=== PATIENT | male | born 1980 | race Caucasian/White ===

== ENCOUNTER 2018-09-13 09:58 | Outpatient (CLI) | payer OTHER ==
[~2018-09-13] VITALS: Ht 177.8 cm; Wt 104.3 kg
[2018-09-13] MEDS ORDERED: CETI10TA17 PO (10:55)
[2018-09-13] MEDS ORDERED: MELO15TA39 PO (10:55)
[2018-09-13] MEDS ORDERED: EMPA25TA PO (10:55)
[2018-09-13] MEDS ORDERED: LISI-552 PO (10:55)
[2018-09-13] MEDS ORDERED: FLUV100T3 PO ×2 (10:55)
[2018-09-13] MEDS ORDERED: OMEP20TA7 PO (10:55)
[2018-09-13] MEDS ORDERED: VILA40TA PO (10:55)
[2018-09-13] MEDS ORDERED: SAXA5TAB PO (10:55)
[2018-09-13] MEDS ORDERED: METF-399 PO (10:55)
== END 2018-09-13 10:57 | disposition home or self-care (01) ==
LOC: PREOP 09:58
PROVIDERS: ATTEND Surgery
DX: Z01.818 Encounter for other preprocedural examination (principal)

== ENCOUNTER → 2018-09-13 | Outpatient (CLI) | payer OTHER ==
[~2018-09-13] MED LIST: CETI10TA17 PO; EMPA25TA PO; FLUV100T3 PO; LISI-552 PO; MELO15TA39 PO; METF-399 PO; OMEP20TA7 PO; SAXA5TAB PO; VILA40TA PO
--- NOTE | 2018-09-13 08:46 | Diagnostic Imaging Report ---
PROCEDURE: US Gallbladder. TECHNIQUE: Multiple real-time grayscale images were obtained over the right upper quadrant in various projections. INDICATION: Chest pain and bloating. FINDINGS: The liver is mildly enlarged at 19 cm. There is a cyst in the left lobe of liver measuring approximately 16 mm x 14 mm. No solid liver mass is identified. The portal vein is patent and shows normal direction of flow. The gallbladder is without stones or sludge. No wall thickening or biliary ductal dilatation is seen. The pancreas was obscured by bowel gas. The right kidney is unremarkable. There is no ascites. IMPRESSION: Mild hepatomegaly and small left lobe hepatic cyst. The study is otherwise unremarkable. Dictated by: Dictated on workstation # [id number]
== END ==
LOC: RAD 06:59
PROVIDERS: ATTEND Surgery
DX: R16.0 Hepatomegaly, not elsewhere classified (principal); K76.89 Other specified diseases of liver; K21.9 Gastro-esophageal reflux disease without esophagitis; R07.9 Chest pain, unspecified
CPT/HCPCS: 76705; 93005

== ENCOUNTER 2018-09-15 11:39 | Day surgery (SDC) | payer OTHER ==
[~2018-09-15] VITALS: Ht 177.8 cm; Wt 104.3 kg
--- OUTSIDE RECORDS SUMMARY | 2018-09-15 11:42 | XMS REPORT ---
Author Author DINO RENO [facility] Address [address] [place] [address] Care Team Providers Care Fur Clipper Name Role Phone DINO RENO Unavailable PROBLEMS Type Condition ICD9-CM Code ILG05-CT Code Onset Dates Condition Status SNOMED Code Problem Acute right-sided low back pain with right-sided sciatica M54.41 Active 966038741 Problem Essential hypertension I10 Active 75350015 Problem Obsessive-compulsive disorder, unspecified type F42.9 Active 855753015 Problem Non-insulin treated type 2 diabetes mellitus E11.9 Active 33309658 Problem Gastroesophageal reflux disease with esophagitis K21.0 Active 998704903 Problem Non morbid obesity due to excess calories E66.09 Active 466780699 ALLERGIES No Information ENCOUNTERS Encounter Location Date Diagnosis [facility] [address] [id number] [id number] Sep, [place] [id number] [place] [address] 12576- 1860 19 Jun, 2018 Acute right-sided low back pain with right-sided sciatica M54.41 [facility] [address] [address] 4261 18 Jun, 2018 [facility] [address] [place] [address] 13750- 5602 16 Jun, 2018 [facility] [address] [place] [address] 52003- 1731 12 Jun, 2018 [facility] [id number] [place] [address] 68922- 6826 Jun, [facility] [address] [place] [address] 60048- 2504 Jun, Acute right-sided low back pain with right-sided sciatica M54.41 [place] [address] [place] [address] 07422- 2959 Apr, [place] [id number] [place] [address] 78886- 5104 Mar, [place] [id number] [place] [address] 64722- 9278 Mar, Gastroesophageal reflux disease with esophagitis K21.0 ; Non -insulin treated type 2 diabetes mellitus E11.9 and Non-intractable vomiting without nausea, unspecified vomiting type R11.11 [place] [id number] [place] [address] 81171- 1704 15 Sep, 2017 [place] [id number] [place] [address] 49366- 9675 Aug, Arthralgia of left temporomandibular joint M26.622 [place] [id number] [place] [address] 45234- 3748 28 Jun, 2017 Gastroesophageal reflux disease with esophagitis K21.0 and Essential hypertension I10 [place] [id number] [place] [address] 57815- 7232 14 May, 2017 Obsessive-compulsive disorder, unspecified type F42.9 [place] [id number] [place] [address] 49302- 0334 11 Jan, 2017 Elevated liver enzymes R74.8 [place] [id number] [place] [address] 59364- 6808 16 Dec, 2016 Non-insulin treated type 2 diabetes mellitus E11.9 ; Non morbid obesity due to excess calories E66.09 and Obsessive-compulsive disorder, unspecified type F42.9 IMMUNIZATIONS No Known Immunizations SOCIAL HISTORY Never Assessed REASON FOR VISIT Update Demographics - Personal Info PLAN OF CARE VITAL SIGNS MEDICATIONS Unknown Medications RESULTS No Results PROCEDURES No Known procedures INSTRUCTIONS MEDICATIONS ADMINISTERED No Known Medications MEDICAL (GENERAL) HISTORY Type Description Date Medical History OCD Medical History Type 2 Diabetes Mellitus- Dx 2013 Medical History GERD Surgical History No know Surgical history Hospitalization History Mental health
--- OUTSIDE RECORDS SUMMARY | 2018-09-15 11:42 | XMS REPORT ---
Author Author DINO RENO [facility] Address [address] [place] [address] Care Team Providers Care Dairy Cattle Farm Worker Name Role Phone DINO RENO Unavailable PROBLEMS Type Condition ICD9-CM Code YLH67-OS Code Onset Dates Condition Status SNOMED Code Problem Acute right-sided low back pain with right-sided sciatica M54.41 Active 246910014 Problem Essential hypertension I10 Active 80221585 Problem Obsessive-compulsive disorder, unspecified type F42.9 Active 759680061 Problem Non-insulin treated type 2 diabetes mellitus E11.9 Active 70574788 Problem Gastroesophageal reflux disease with esophagitis K21.0 Active 315305116 Problem Non morbid obesity due to excess calories E66.09 Active 358289234 ALLERGIES No Information ENCOUNTERS Encounter Location Date Diagnosis [facility] [address] [id number] [id number] Sep, [address] [id number] [place] [address] 07069- 9246 19 Jun, 2018 Acute right-sided low back pain with right-sided sciatica M54.41 [facility] [address], [place] [address] 4688 18 Jun, 2018 [place] [address] [place] [address] 06715- 3717 16 Jun, 2018 [place] [facility] [address] [place] [address] 54673- 4938 12 Jun, 2018 [place] [id number] [place] [address] 71336- 3542 Jun, [facility] [address] [place] [address] 45371- 1056 Jun, Acute right-sided low back pain with right-sided sciatica M54.41 [place] [address] [place] [address] 20766- 6314 Apr, [place] [id number] [place] [address] 66653- 5725 Mar, [place] [id number] [place] [address] 87820- 3933 Mar, Gastroesophageal reflux disease with esophagitis K21.0 ; Non -insulin treated type 2 diabetes mellitus E11.9 and Non-intractable vomiting without nausea, unspecified vomiting type R11.11 [place] [id number] [place] [address] 49070- 3662 15 Sep, 2017 [place] [id number] [place] [address] 64356- 6128 Aug, Arthralgia of left temporomandibular joint M26.622 [place] [id number] [place] [address] 52866- 1008 28 Jun, 2017 Gastroesophageal reflux disease with esophagitis K21.0 and Essential hypertension I10 [place] [id number] [place] [address] 49941- 6992 14 May, 2017 Obsessive-compulsive disorder, unspecified type F42.9 [place] [id number] [place] [address] 71643- 5153 11 Jan, 2017 Elevated liver enzymes R74.8 [place] [id number] [place] [address] 56866- 8516 16 Dec, 2016 Non-insulin treated type 2 diabetes mellitus E11.9 ; Non morbid obesity due to excess calories E66.09 and Obsessive-compulsive disorder, unspecified type F42.9 IMMUNIZATIONS No Known Immunizations SOCIAL HISTORY Never Assessed REASON FOR VISIT Update Demographics - Additional Info PLAN OF CARE VITAL SIGNS MEDICATIONS Unknown Medications RESULTS No Results PROCEDURES No Known procedures INSTRUCTIONS MEDICATIONS ADMINISTERED No Known Medications MEDICAL (GENERAL) HISTORY Type Description Date Medical History OCD Medical History Type 2 Diabetes Mellitus- Dx 2013 Medical History GERD Surgical History No know Surgical history Hospitalization History Mental health
--- OUTSIDE RECORDS SUMMARY | 2018-09-15 11:43 | XMS REPORT ---
Author Author DINO RENO [facility] Address [address] [place] [address] Care Team Providers Care Career Law Clerk Name Role Phone DINO RENO Unavailable PROBLEMS Type Condition ICD9-CM Code ROA87-VG Code Onset Dates Condition Status SNOMED Code Problem Acute right-sided low back pain with right-sided sciatica M54.41 Active 290205678 Problem Essential hypertension I10 Active 29972907 Problem Obsessive-compulsive disorder, unspecified type F42.9 Active 878419033 Problem Non-insulin treated type 2 diabetes mellitus E11.9 Active 17704582 Problem Gastroesophageal reflux disease with esophagitis K21.0 Active 961141215 Problem Non morbid obesity due to excess calories E66.09 Active 004766913 ALLERGIES No Known Allergies ENCOUNTERS Encounter Location Date Diagnosis [facility] [address] [id number] [id number] Sep, [address] [id number] [place] [address] 10171- 4292 19 Jun, 2018 Acute right-sided low back pain with right-sided sciatica M54.41 [facility] [address], [place] [address]- 4143 18 Jun, 2018 [facility] [address] [place] [address] 27841- 8698 16 Jun, 2018 [facility] [address] [place] [address] 12931- 0704 12 Jun, 2018 [facility] [id number] [place] [address] 47785- 6179 Jun, [facility] [address] [place] [address] 79773- 3465 Jun, Acute right-sided low back pain with right-sided sciatica M54.41 [place] [address] [place] [address] 63202- 3166 Apr, [place] [id number] [place] [address] 39725- 1171 Mar, [place] [address] [place] [address] 12240- 3851 Mar, Gastroesophageal reflux disease with esophagitis K21.0 ; Non -insulin treated type 2 diabetes mellitus E11.9 and Non-intractable vomiting without nausea, unspecified vomiting type R11.11 [place] [address] [place] [address] 17423- 5225 Sep, [place] [address] [place] [address] 50537- 4834 Aug, Arthralgia of left temporomandibular joint M26.622 [place] [address] [place] [address] 10913- 2918 28 Jun, 2017 Gastroesophageal reflux disease with esophagitis K21.0 and Essential hypertension I10 [place] [address] [place] [address] 36318- 8288 14 May, 2017 Obsessive-compulsive disorder, unspecified type F42.9 [place] [id number] [place] [address] 44723- 3134 11 Jan, 2017 Elevated liver enzymes R74.8 [place] [address] [place] [address] 25580- 8255 16 Dec, 2016 Non-insulin treated type 2 diabetes mellitus E11.9 ; Non morbid obesity due to excess calories E66.09 and Obsessive-compulsive disorder, unspecified type F42.9 IMMUNIZATIONS No Known Immunizations SOCIAL HISTORY Never Assessed REASON FOR VISIT back injury, 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 and he heard a crunch on his lower rt back x 1 month ago but getting worst every single day -- eli ray PLAN OF CARE Activity Details Follow Up 6 Weeks with Janie if not improving Reason: VITAL SIGNS Height 70 in 2018-06-30 Weight 234.6 lbs 2018-06-30 Temperature 97.8 degrees Fahrenheit 2018-06-30 Heart Rate 78 bpm 2018-06-30 Respiratory Rate 18 2018-06-30 BMI 33.66 kg/m2 2018-06-30 Blood pressure systolic 132 mmHg 2018-06-30 Blood pressure diastolic 80 mmHg 2018-06-30 MEDICATIONS Medication Instructions Dosage Frequency Start Date End Date Duration Status Metformin HCl 1000 MG Orally Twice a day 1 tablet with meals 12h Active Saxagliptin HCl 5 MG Orally Once a day 1 tablet 24h Active Omeprazole 20 MG TAKE ONE CAPSULE BY MOUTH ONCE DAILY 30 Active Ranitidine HCl 300 MG Orally Once a day 2 tablet at bedtime 24h Active Viibryd 40 mg Orally Once a day 1 tablet with food 24h 30 days Active Lisinopril 20 MG Orally Once a day 1 tablet 24h Active Ezetimibe-Simvastatin 10-20 MG Orally Once a day 1 tablet 24h Active RESULTS No Results PROCEDURES No Known procedures INSTRUCTIONS MEDICATIONS ADMINISTERED No Known Medications MEDICAL (GENERAL) HISTORY Type Description Date Medical History OCD Medical History Type 2 Diabetes Mellitus- Dx 2013 Medical History GERD Surgical History No know Surgical history Hospitalization History Mental health
--- OUTSIDE RECORDS SUMMARY | 2018-09-15 11:43 | XMS REPORT ---
Author Author DINO RENO [facility] Address [address] [place] [address] Care Team Providers Care Sketcher Name Role Phone DINO RENO Unavailable PROBLEMS Type Condition ICD9-CM Code [id number] Code Onset Dates Condition Status SNOMED Code Problem Essential hypertension I10 Active 56354841 Problem Gastroesophageal reflux disease with esophagitis K21.0 Active 138319988 Problem Non morbid obesity due to excess calories E66.09 Active 758382551 Problem Obsessive-compulsive disorder, unspecified type F42.9 Active 134859610 Problem Non-insulin treated type 2 diabetes mellitus E11.9 Active 51224978 ALLERGIES No Known Allergies ENCOUNTERS Encounter Location Date Diagnosis [place] [id number] [place] [address] 31418- 2061 Apr, [place] [id number] [place] [address] 42224- 5259 Mar, [place] [id number] [place] [address] 43782- 3816 Mar, Gastroesophageal reflux disease with esophagitis K21.0 ; Non -insulin treated type 2 diabetes mellitus E11.9 and Non-intractable vomiting without nausea, unspecified vomiting type R11.11 [place] [id number] [place] [address] 37622- 1682 15 Sep, 2017 [place] [id number] [place] [address] 01891- 7976 14 Aug, 2017 Arthralgia of left temporomandibular joint M26.622 [place] [id number] [place] [address] 45263- 8752 28 Jun, 2017 Gastroesophageal reflux disease with esophagitis K21.0 and Essential hypertension I10 [place] [id number] [address]- 8957 14 May, 2017 Obsessive-compulsive disorder, unspecified type F42.9 [place] [address] [facility] [id number] [address]- 2292 11 Jan, 2017 Elevated liver enzymes R74.8 [place] [address] [facility] [id number], [place] [address]- 0012 16 Dec, 2016 Non-insulin treated type 2 diabetes mellitus E11.9 ; Non morbid obesity due to excess calories E66.09 and Obsessive-compulsive disorder, unspecified type F42.9 IMMUNIZATIONS No Known Immunizations SOCIAL HISTORY Never Assessed REASON FOR VISIT Left ear throbbing pain x 2 months. KBoleRN PLAN OF CARE Activity Details Follow Up Due for [facility] visit with Janie Reason: VITAL SIGNS Height 70 in 2017-09-01 Weight 247.3 lbs 2017-09-01 Temperature 100.0 degrees Fahrenheit 2017-09-01 Heart Rate 80 bpm 2017-09-01 Respiratory Rate 18 2017-09-01 BMI 35.48 kg/m2 2017-09-01 Blood pressure systolic 146 mmHg 2017-09-01 Blood pressure diastolic 76 mmHg 2017-09-01 MEDICATIONS Medication Instructions Dosage Frequency Start Date End Date Duration Status PredniSONE 50 mg Orally Once a day 1 tablet 24h Aug, Aug, 05 days Active Saxagliptin HCl 5 MG Orally Once a day 1 tablet 24h Active Fluvoxamine Maleate 100 mg Orally Twice a day 1 tablet in the am and 2 tabs at before bed 12h 30 Active Lisinopril 20 MG Orally Once a day 1 tablet 24h Active Metformin HCl 1000 MG Orally Twice a day 1 tablet with meals 12h Active Omeprazole 20 mg Orally Once a day 1 capsule 24h Active Ranitidine HCl 300 MG Orally Once a day 2 tablet at bedtime 24h Not-Taking Viibryd 40 mg Orally Once a day 1 tablet with food 24h 30 days Active Ezetimibe-Simvastatin 10-20 MG Orally Once a day 1 tablet 24h Not- Taking RESULTS No Results PROCEDURES No Known procedures INSTRUCTIONS MEDICATIONS ADMINISTERED No Known Medications MEDICAL (GENERAL) HISTORY Type Description Date Medical History OCD Medical History Type 2 Diabetes Mellitus- Dx 2013 Medical History GERD Hospitalization History Mental health
--- OUTSIDE RECORDS SUMMARY | 2018-09-15 11:43 | XMS REPORT ---
Author Author DINO RENO [facility] Address [address] [place] [address] Care Team Providers Care Coal Bagger Name Role Phone DINO RENO Unavailable PROBLEMS Type Condition ICD9-CM Code TMO25-OS Code Onset Dates Condition Status SNOMED Code Problem Essential hypertension I10 Active 01416138 Problem Gastroesophageal reflux disease with esophagitis K21.0 Active 048587577 Problem Non morbid obesity due to excess calories E66.09 Active 454371875 Problem Obsessive-compulsive disorder, unspecified type F42.9 Active 002051247 Problem Non-insulin treated type 2 diabetes mellitus E11.9 Active 06360185 ALLERGIES No Information ENCOUNTERS Encounter Location Date Diagnosis [place] [id number] [place] [address] 58229- 2289 Apr, [place] [id number] [place] [address] 14694- 8323 Mar, [place] [id number] [place] [address] 17001- 6267 Mar, Gastroesophageal reflux disease with esophagitis K21.0 ; Non -insulin treated type 2 diabetes mellitus E11.9 and Non-intractable vomiting without nausea, unspecified vomiting type R11.11 [place] [id number] [place] [address] 37407- 9318 15 Sep, 2017 [place] [id number] [place] [address] 35839- 6756 14 Aug, 2017 Arthralgia of left temporomandibular joint M26.622 [place] [id number] [place] [address] 97961- 2262 28 Jun, 2017 Gastroesophageal reflux disease with esophagitis K21.0 and Essential hypertension I10 [place] [address] [place] [address]- 3524 May, Obsessive-compulsive disorder, unspecified type F42.9 [facility] [address] [facility] [id number] [address]- 8519 Jan, Elevated liver enzymes R74.8 [place] [address] [facility] [id number] [address]- 7869 Dec, Non-insulin treated type 2 diabetes mellitus E11.9 ; Non morbid obesity due to excess calories E66.09 and Obsessive-compulsive disorder, unspecified type F42.9 IMMUNIZATIONS No Known Immunizations SOCIAL HISTORY Never Assessed REASON FOR VISIT lab work PLAN OF CARE VITAL SIGNS MEDICATIONS Unknown Medications RESULTS No Results PROCEDURES No Known procedures INSTRUCTIONS MEDICATIONS ADMINISTERED No Known Medications MEDICAL (GENERAL) HISTORY Type Description Date Medical History OCD Medical History Type 2 Diabetes Mellitus- Dx 2013 Medical History GERD Hospitalization History Mental health
--- OUTSIDE RECORDS SUMMARY | 2018-09-15 11:43 | XMS REPORT ---
Author Author VERONIKA STEVENS [facility] eClinical[employer] Address Unknown Phone Unavailable Care Team Providers Care Supervisor Color Making Name Role Phone VERONIKA STEVENS CP Unavailable Allergies No Known Allergies Problems Problem Type Condition Code Onset Dates Condition Status Assessment Lumbago 724.2 Active Medications Medication Code System Code Instructions Start Date End Date Status Dosage Gabapentin [facility] 13486 300 mg orally 3 times a day February 05, 2015 1 cap(s) Results No Known Results Summary Purpose eClinicalWorks Submission
--- OUTSIDE RECORDS SUMMARY | 2018-09-15 11:43 | XMS REPORT ---
Author Author SHABNAM HANY [facility] Address [address] [place] [address] Care Team Providers Care Upholstery Cleaner Name Role Phone DANE HAQUEHANY Unavailable PROBLEMS Type Condition ICD9-CM Code FNY14-PP Code Onset Dates Condition Status SNOMED Code Problem Acute right-sided low back pain with right-sided sciatica M54.41 Active 329059351 Problem Essential hypertension I10 Active 17722728 Problem Obsessive-compulsive disorder, unspecified type F42.9 Active 943940634 Problem Non-insulin treated type 2 diabetes mellitus E11.9 Active 81493225 Problem Gastroesophageal reflux disease with esophagitis K21.0 Active 338448966 Problem Non morbid obesity due to excess calories E66.09 Active 861447708 ALLERGIES No Information ENCOUNTERS Encounter Location Date Diagnosis [facility] [id number] [place] [address] 86033- 7885 Jul, [facility] [id number] [place] [address] 71475- 3509 19 Jun, 2018 Acute right-sided low back pain with right-sided sciatica M54.41 [facility] [address] [place] [address] 21144- 5360 18 Jun, 2018 [facility] [id number] [place] [address] 18766- 2646 16 Jun, 2018 [facility] [id number] [place] [address] 90279- 7861 Jun, [facility] [id number] [place] [address] 16877- 5823 Jun, [facility] [id number] [place] [address] 01143- 1543 Jun, Acute right-sided low back pain with right-sided sciatica M54.41 [place] [id number] [place] [address] 00694- 9992 Apr, [place] [id number] [place] [address] 46347- 5363 Mar, [place] [address] [place] [address] 73213- 5617 Mar, Gastroesophageal reflux disease with esophagitis K21.0 ; Non -insulin treated type 2 diabetes mellitus E11.9 and Non-intractable vomiting without nausea, unspecified vomiting type R11.11 [place] [id number] [place] [address] 75805- 9103 Sep, [place] [id number] [place] [address] 78371- 6128 Aug, Arthralgia of left temporomandibular joint M26.622 [place] [address] [place] [address] 97483- 7379 Jun, Gastroesophageal reflux disease with esophagitis K21.0 and Essential hypertension I10 [place] [address] [place] [address] 34262- 7933 14 May, 2017 Obsessive-compulsive disorder, unspecified type F42.9 [place] [id number] [place] [address] 45922- 8429 Jan, Elevated liver enzymes R74.8 [place] [id number] [place] [address] 68428- 4444 16 Dec, 2016 Non-insulin treated type 2 diabetes mellitus E11.9 ; Non morbid obesity due to excess calories E66.09 and Obsessive-compulsive disorder, unspecified type F42.9 IMMUNIZATIONS No Known Immunizations SOCIAL HISTORY Never Assessed REASON FOR VISIT My back injury PLAN OF CARE VITAL SIGNS MEDICATIONS Medication Instructions Dosage Frequency Start Date End Date Duration Status Cyclobenzaprine HCl 10 mg Orally Three times a day 1 tablet as needed 8h Jun, Active RESULTS No Results PROCEDURES No Known procedures INSTRUCTIONS MEDICATIONS ADMINISTERED No Known Medications MEDICAL (GENERAL) HISTORY Type Description Date Medical History OCD Medical History Type 2 Diabetes Mellitus- Dx 2013 Medical History GERD Surgical History No know Surgical history Hospitalization History Mental health
--- OUTSIDE RECORDS SUMMARY | 2018-09-15 11:43 | XMS REPORT ---
Author Author DINO RENO [facility] Address [address] [place] [address] Care Team Providers Care Die Filer Name Role Phone DINO RENO Unavailable PROBLEMS Type Condition ICD9-CM Code [id number] Code Onset Dates Condition Status SNOMED Code Problem Essential hypertension I10 Active 61447529 Problem Gastroesophageal reflux disease with esophagitis K21.0 Active 001303399 Problem Non morbid obesity due to excess calories E66.09 Active 412877177 Problem Obsessive-compulsive disorder, unspecified type F42.9 Active 938215877 Problem Non-insulin treated type 2 diabetes mellitus E11.9 Active 03943041 ALLERGIES No Information ENCOUNTERS Encounter Location Date Diagnosis [place] [id number] [place] [address] 75791- 3609 Apr, [place] [id number] [place] [address] 94311- 6103 Mar, [place] [id number] [place] [address] 02471- 9956 Mar, Gastroesophageal reflux disease with esophagitis K21.0 ; Non -insulin treated type 2 diabetes mellitus E11.9 and Non-intractable vomiting without nausea, unspecified vomiting type R11.11 [place] [id number] [place] [address] 12248- 8728 15 Sep, 2017 [place] [id number] [place] [address] 60065- 0490 14 Aug, 2017 Arthralgia of left temporomandibular joint M26.622 [place] [id number] [place] [address] 26345- 5997 28 Jun, 2017 Gastroesophageal reflux disease with esophagitis K21.0 and Essential hypertension I10 [place] [id number] [address] 14 May, 2017 Obsessive-compulsive disorder, unspecified type F42.9 [facility] [place] [address] [facility] [id number] [address] 11 Jan, 2017 Elevated liver enzymes R74.8 [place] [address] [facility] [id number] [address] 16 Dec, 2016 Non-insulin treated type 2 diabetes mellitus E11.9 ; Non morbid obesity due to excess calories E66.09 and Obsessive-compulsive disorder, unspecified type F42.9 IMMUNIZATIONS No Known Immunizations SOCIAL HISTORY Never Assessed REASON FOR VISIT Requests return call PLAN OF CARE VITAL SIGNS MEDICATIONS Medication Instructions Dosage Frequency Start Date End Date Duration Status Viibryd 40 mg Orally Once a day 1 tablet with food 24h 30 days Unknown Lisinopril 20 MG Orally Once a day 1 tablet 24h Unknown Fluvoxamine Maleate 100 MG TAKE ONE TABLET BY MOUTH IN THE MORNING AND TWO TABLETS BEFORE BED 30 Unknown Vitamin D 2000 UNIT Orally Once a day 1 tablet 24h Active Metformin HCl 1000 MG Orally Twice a day 1 tablet with meals 12h Unknown Ranitidine HCl 300 MG Orally Once a day 2 tablet at bedtime 24h Unknown Omeprazole 20 MG TAKE ONE CAPSULE BY MOUTH ONCE DAILY 30 Unknown Saxagliptin HCl 5 MG Orally Once a day 1 tablet 24h Unknown Ezetimibe-Simvastatin 10-20 MG Orally Once a day 1 tablet 24h Unknown Carafate 1 GM Orally Twice a day 1 tablet before meals 12h Mar, Apr, 30 day(s) Unknown RESULTS No Results PROCEDURES No Known procedures INSTRUCTIONS MEDICATIONS ADMINISTERED No Known Medications MEDICAL (GENERAL) HISTORY Type Description Date Medical History OCD Medical History Type 2 Diabetes Mellitus- Dx 2013 Medical History GERD Hospitalization History Mental health
--- OUTSIDE RECORDS SUMMARY | 2018-09-15 11:43 | XMS REPORT ---
Author Author DINO RENO [facility] Address [address] [place] [address] Care Team Providers Care It Security Consultant Name Role Phone DINO RENO Unavailable PROBLEMS Type Condition ICD9-CM Code [id number] Code Onset Dates Condition Status SNOMED Code Problem Essential hypertension I10 Active 24810895 Problem Gastroesophageal reflux disease with esophagitis K21.0 Active 263460654 Problem Non morbid obesity due to excess calories E66.09 Active 716348490 Problem Obsessive-compulsive disorder, unspecified type F42.9 Active 356607365 Problem Non-insulin treated type 2 diabetes mellitus E11.9 Active 08490710 ALLERGIES No Known Allergies ENCOUNTERS Encounter Location Date Diagnosis [place] [id number] [place] [address] 81525- 0971 Apr, [place] [id number] [place] [address] 39158- 2876 Mar, [place] [id number] [place] [address] 71035- 1202 Mar, Gastroesophageal reflux disease with esophagitis K21.0 ; Non -insulin treated type 2 diabetes mellitus E11.9 and Non-intractable vomiting without nausea, unspecified vomiting type R11.11 [place] [id number] [place] [address] 00105- 5822 15 Sep, 2017 [place] [id number] [place] [address] 08176- 4975 14 Aug, 2017 Arthralgia of left temporomandibular joint M26.622 [place] [id number] [place] [address] 28729- 1523 28 Jun, 2017 Gastroesophageal reflux disease with esophagitis K21.0 and Essential hypertension I10 [place] [id number] [address] 8[address] 14 May, 2017 Obsessive-compulsive disorder, unspecified type F42.9 [place] [address] [facility] [id number], [place] [address] 11 Jan, 2017 Elevated liver enzymes R74.8 [place] [address] [facility] [id number], [place] [address] 16 Dec, 2016 Non-insulin treated type 2 diabetes mellitus E11.9 ; Non morbid obesity due to excess calories E66.09 and Obsessive-compulsive disorder, unspecified type F42.9 IMMUNIZATIONS No Known Immunizations SOCIAL HISTORY Never Assessed REASON FOR VISIT Heartburn---Samson PLAN OF CARE Activity Details Follow Up 3 Months with Janie velasquez GERD/HTN Reason: VITAL SIGNS Height 70 in 2017-07-16 Weight 260 lbs 2017-07-16 Temperature 98.4 degrees Fahrenheit 2017-07-16 Heart Rate 90 bpm 2017-07-16 Respiratory Rate 20 2017-07-16 BMI 37.30 kg/m2 2017-07-16 Blood pressure systolic 152 mmHg 2017-07-16 Blood pressure diastolic 70 mmHg 2017-07-16 MEDICATIONS Medication Instructions Dosage Frequency Start Date End Date Duration Status Ezetimibe-Simvastatin 10-20 MG Orally Once a day 1 tablet 24h Active Metformin HCl 1000 MG Orally Twice a day 1 tablet with meals 12h Active Saxagliptin HCl 5 MG Orally Once a day 1 tablet 24h Active Lisinopril 20 MG Orally Once a day 1 tablet 24h Active Omeprazole 20 mg Orally Once a day 1 capsule 24h Active Fluvoxamine Maleate 100 mg Orally Twice a day 1 tablet in the am and 2 tabs at before bed 12h 30 Active Viibryd 40 mg Orally Once a day 1 tablet with food 24h 30 days Active Ranitidine HCl 300 MG Orally Once a day 2 tablet at bedtime 24h Active RESULTS No Results PROCEDURES No Known procedures INSTRUCTIONS MEDICATIONS ADMINISTERED No Known Medications MEDICAL (GENERAL) HISTORY Type Description Date Medical History OCD Medical History Type 2 Diabetes Mellitus- Dx 2013 Medical History GERD Hospitalization History Mental health
--- OUTSIDE RECORDS SUMMARY | 2018-09-15 11:43 | XMS REPORT ---
Author VERONIKA Justin [facility] eClinicalWorks Address Unknown Phone Unavailable Care Team Providers Care Tester Printed Circuit Boards Name Role Phone VERONIKA STEVENS CP Unavailable Allergies No Known Allergies Problems No Known Problems Medications No Known Medications Results No Known Results Summary Purpose eClinicalWorks Submission
--- OUTSIDE RECORDS SUMMARY | 2018-09-15 11:43 | XMS REPORT ---
Author Author SHABNAM HANY [facility] Address [address] [place] [address] Care Team Providers Care Locksmith Helper Name Role Phone DNAE HAQUEHANY Unavailable PROBLEMS Type Condition ICD9-CM Code [id number] Code Onset Dates Condition Status SNOMED Code Problem Acute right-sided low back pain with right-sided sciatica M54.41 Active 963267752 Problem Essential hypertension I10 Active 19657077 Problem Obsessive-compulsive disorder, unspecified type F42.9 Active 251464199 Problem Non-insulin treated type 2 diabetes mellitus E11.9 Active 30734663 Problem Gastroesophageal reflux disease with esophagitis K21.0 Active 375836573 Problem Non morbid obesity due to excess calories E66.09 Active 223737002 ALLERGIES No Information ENCOUNTERS Encounter Location Date Diagnosis [facility] [id number] [place] [address] 18261- 4034 Jul, [facility] [id number] [place] [address] 91920- 3924 19 Jun, 2018 Acute right-sided low back pain with right-sided sciatica M54.41 [facility] [address] [place] [address] 15889- 4788 18 Jun, 2018 [facility] [id number] [place] [address] 31702- 9506 16 Jun, 2018 [facility] [id number] [place] [address] 71789- 5807 Jun, [facility] [id number] [place] [address] 53916- 0375 Jun, [facility] [id number] [place] [address] 88444- 1538 Jun, Acute right-sided low back pain with right-sided sciatica M54.41 [place] [address] [place] [address] 53833- 4832 Apr, [place] [id number] [place] [address] 82545- 3992 Mar, [place] [id number] [place] [address] 52736- 9428 Mar, Gastroesophageal reflux disease with esophagitis K21.0 ; Non -insulin treated type 2 diabetes mellitus E11.9 and Non-intractable vomiting without nausea, unspecified vomiting type R11.11 [place] [id number] [place] [address] 20260- 5767 Sep, [place] [id number] [place] [address] 85716- 6276 Aug, Arthralgia of left temporomandibular joint M26.622 [place] [id number] [place] [address] 75842- 9631 Jun, Gastroesophageal reflux disease with esophagitis K21.0 and Essential hypertension I10 [place] [id number] [place] [address] 86751- 8268 14 May, 2017 Obsessive-compulsive disorder, unspecified type F42.9 [place] [id number] [place] [address] 27179- 2747 Jan, Elevated liver enzymes R74.8 [place] [id number] [place] [address] 52065- 7271 16 Dec, 2016 Non-insulin treated type 2 diabetes mellitus E11.9 ; Non morbid obesity due to excess calories E66.09 and Obsessive-compulsive disorder, unspecified type F42.9 IMMUNIZATIONS No Known Immunizations SOCIAL HISTORY Never Assessed REASON FOR VISIT Work Release PLAN OF CARE VITAL SIGNS MEDICATIONS Unknown Medications RESULTS No Results PROCEDURES No Known procedures INSTRUCTIONS MEDICATIONS ADMINISTERED No Known Medications MEDICAL (GENERAL) HISTORY Type Description Date Medical History OCD Medical History Type 2 Diabetes Mellitus- Dx 2013 Medical History GERD Surgical History No know Surgical history Hospitalization History Mental health
--- OUTSIDE RECORDS SUMMARY | 2018-09-15 11:43 | XMS REPORT ---
Author Author VERONIKA STEVENS [facility] eClinicalWorks Address Unknown Phone Unavailable Care Team Providers Care Antenna Installer Name Role Phone VERONIKA STEVENS CP Unavailable Allergies No Known Allergies Problems No Known Problems Medications No Known Medications Results No Known Results Summary Purpose eClinicalWorks Submission
--- OUTSIDE RECORDS SUMMARY | 2018-09-15 11:43 | XMS REPORT ---
Author Author VERONIKA STEVENS [facility] eClinicalWorks Address Unknown Phone Unavailable Care Team Providers Care Compliance Auditor Name Role Phone VERONIKA STEVENS CP Unavailable Allergies, Adverse Reactions, Alerts Substance Reaction Event Type N.K.D.A. Info Not Available Non Drug Allergy Problems Problem Type Condition Code Onset Dates Condition Status Assessment Lumbago 724.2 Active Medications Medication Code System Code Instructions Start Date End Date Status Dosage Viibryd NDC 366440 40 mg orally once a day 1 tab(s) saxagliptin NDC 979650 5 mg orally once a day 1 tab(s) Gabapentin NDC 63856 100 mg orally 3 times a day February 05, 2015 1 cap(s) metformin NDC 79989 1000 mg orally 2 times a day 1 tablets lisinopril NDC 34920 20 mg orally once a day 1 tab(s) ezetimibe-simvastatin NDC 59824 10 mg-20 mg orally once a day 1 tab(s) fluvoxamine NDC 57141 100 mg orally daily 1 tab(s) in am 2 tab in pm Procedures Procedure Coding System Code Date Office Visit, estab pt, Level 4 CPT-4 45438 February 05, 2015 Vital Signs Date/Time: February 05, 2015 BMI 35.15 Index Weight 245 lbs Height 70 in Pain Scale 5 0-10 Blood Pressure Diastolic 74 mm Hg Blood Pressure Systolic 118 mm Hg Temperature 98.6 F Results No Known Results Summary Purpose eClinicalWorks Submission
--- OUTSIDE RECORDS SUMMARY | 2018-09-15 11:43 | XMS REPORT ---
Author Author HANY HAQUE [facility] Address [address] [place] [address] Care Team Providers Care Orchid Hand Name Role Phone HANY HAQUE Unavailable PROBLEMS ALLERGIES No Known Allergies ENCOUNTERS IMMUNIZATIONS No Known Immunizations SOCIAL HISTORY No smoking Hx information available REASON FOR VISIT PLAN OF CARE VITAL SIGNS MEDICATIONS RESULTS No Results PROCEDURES No Known procedures INSTRUCTIONS MEDICATIONS ADMINISTERED No Known Medications MEDICAL (GENERAL) HISTORY
--- OUTSIDE RECORDS SUMMARY | 2018-09-15 11:43 | XMS REPORT ---
Author Author DINO RENO [facility] Address [address] [place] [address] Care Team Providers Care Formula Checker Name Role Phone DINO RENO Unavailable PROBLEMS Type Condition ICD9-CM Code [id number] Code Onset Dates Condition Status SNOMED Code Problem Acute right-sided low back pain with right-sided sciatica M54.41 Active 449961597 Problem Essential hypertension I10 Active 73168341 Problem Obsessive-compulsive disorder, unspecified type F42.9 Active 853969403 Problem Non-insulin treated type 2 diabetes mellitus E11.9 Active 77072435 Problem Gastroesophageal reflux disease with esophagitis K21.0 Active 678778670 Problem Non morbid obesity due to excess calories E66.09 Active 298350038 ALLERGIES No Known Allergies ENCOUNTERS Encounter Location Date Diagnosis [facility] [id number] [id number] Sep, [place] [id number] [place] [address] 02682- 3451 19 Jun, 2018 Acute right-sided low back pain with right-sided sciatica M54.41 [facility] [address] [address]- 7259 18 Jun, 2018 [facility] [address] [place] [address] 10364- 4478 16 Jun, 2018 [facility] [address] [place] [address] 59701- 6141 12 Jun, 2018 [facility] [id number] [place] [address] 43645- 5710 Jun, [facility] [address] [place] [address] 84776- 7295 Jun, Acute right-sided low back pain with right-sided sciatica M54.41 [place] [address] [place] [address] 38355- 1546 Apr, [place] [id number] [place] [address] 56568- 9395 Mar, [place] [id number] [place] [address] 73520- 4611 Mar, Gastroesophageal reflux disease with esophagitis K21.0 ; Non -insulin treated type 2 diabetes mellitus E11.9 and Non-intractable vomiting without nausea, unspecified vomiting type R11.11 [place] [id number] [place] [address] 53189- 2238 15 Sep, 2017 [place] [id number] [place] [address] 14006- 5201 Aug, Arthralgia of left temporomandibular joint M26.622 [place] [id number] [place] [address] 95490- 6438 28 Jun, 2017 Gastroesophageal reflux disease with esophagitis K21.0 and Essential hypertension I10 [place] [id number] [place] [address] 00927- 6086 14 May, 2017 Obsessive-compulsive disorder, unspecified type F42.9 [place] [id number] [place] [address] 27410- 3168 11 Jan, 2017 Elevated liver enzymes R74.8 [place] [id number] [place] [address] 99152- 2413 16 Dec, 2016 Non-insulin treated type 2 diabetes mellitus E11.9 ; Non morbid obesity due to excess calories E66.09 and Obsessive-compulsive disorder, unspecified type F42.9 IMMUNIZATIONS No Known Immunizations SOCIAL HISTORY Never Assessed REASON FOR VISIT Vomiting, gas, vomiting x few days -- eli ray PLAN OF CARE Activity Details Follow Up prn Reason: VITAL SIGNS Height 70 in 2018-04-14 Weight 236.0 lbs 2018-04-14 Temperature 97.6 degrees Fahrenheit 2018-04-14 Heart Rate 86 bpm 2018-04-14 Respiratory Rate 20 2018-04-14 BMI 33.86 kg/m2 2018-04-14 Blood pressure systolic 128 mmHg 2018-04-14 Blood pressure diastolic 78 mmHg 2018-04-14 MEDICATIONS Medication Instructions Dosage Frequency Start Date End Date Duration Status Omeprazole 20 MG TAKE ONE CAPSULE BY MOUTH ONCE DAILY 30 Active Fluvoxamine Maleate 100 MG TAKE ONE TABLET BY MOUTH IN THE MORNING AND TWO TABLETS BEFORE BED 30 Active Carafate 1 GM Orally Twice a day 1 tablet before meals 12h Mar, Apr, 30 day(s) Active Lisinopril 20 MG Orally Once a day 1 tablet 24h Active Viibryd 40 mg Orally Once a day 1 tablet with food 24h 30 days Active Metformin HCl 1000 MG Orally Twice a day 1 tablet with meals 12h Active Saxagliptin HCl 5 MG Orally Once a day 1 tablet 24h Active RESULTS Name Result Date Reference Range A1C (IN HOUSE) 2018-04-14 A1C IN HOUSE 6.4 4.3 - 5.6 % Previous A1c 6.9 Lot [id number] Exp date 11/2019 PROCEDURES Procedure Date Ordered Result Body Site GLYCATED HEMOGLOBIN TEST April 14, 2018 INSTRUCTIONS MEDICATIONS ADMINISTERED No Known Medications MEDICAL (GENERAL) HISTORY Type Description Date Medical History OCD Medical History Type 2 Diabetes Mellitus- Dx 2013 Medical History GERD Surgical History No know Surgical history Hospitalization History Mental health
--- OUTSIDE RECORDS SUMMARY | 2018-09-15 11:44 | XMS REPORT | Continuity of Care Document ---
Author Author [facility] Address Unknown Phone Unavailable Allergies Active Description Code Type Severity Reaction Onset Reported/Identified Relationship to Patient Clinical Status Yes NO NAME AVAILABLE 58156 DRUG N/ A N/A Yes NO KNOWN DRUG ALLERGIES UNKNOWN NO KNOWN DRUG ALLERG Medications There is no data. Problems There is no data. Procedures There is no data. Results Test Result Range GLUCOSE POCT - 10/18/14 10:03 GLUCOSE BY METER 97 mg/dL 70-115 GLUCOSE POCT - 10/27/14 11:20 GLUCOSE BY METER 87 mg/dL 70-115 Type of Urine collection method - 07/29/16 11:46 TSH+Free T4 - 01/01/17 00:00 TSH 1.030 uIU/mL 0.450-4.500 T4,Free(Direct) 1.06 ng/dL 0.82-1.77 CBC With Differential/Platelet - 01/01/17 00:00 WBC 6.4 x10E3/uL 3.4-10.8 RBC 4.91 x10E6/uL 4.14-5.80 Hemoglobin 14.3 g/dL 12.6-17.7 Hematocrit 42.1 % 37.5-51.0 MCV 86 fL 79-97 MCH 29.1 pg 26.6-33.0 MCHC 34.0 g/dL 31.5-35.7 RDW 13.6 % 12.3-15.4 Platelets 253 x10E3/uL 150-379 Neutrophils 50 % Lymphs 38 % Monocytes 10 % Eos 2 % Basos 0 % Neutrophils (Absolute) 3.2 x10E3/uL 1.4-7.0 Lymphs (Absolute) 2.4 x10E3/uL 0.7-3.1 Monocytes(Absolute) 0.7 x10E3/uL 0.1-0.9 Eos (Absolute) 0.1 x10E3/uL 0.0-0.4 Baso (Absolute) 0.0 x10E3/uL 0.0-0.2 Immature Granulocytes 0 % Immature Grans (Abs) 0.0 x10E3/uL 0.0-0.1 Comp. Metabolic Panel (14) - 01/01/17 00:00 Glucose, Serum 175 mg/dL 65-99 BUN 11 mg/dL 6-20 Creatinine, Serum 1.07 mg/dL 0.76-1.27 eGFR If NonAfricn Am 89 mL/min/1.73 >59 eGFR If Africn Am 103 mL/min/1.73 >59 BUN/Creatinine Ratio 10 8-19 Sodium, Serum 141 mmol/L 134-144 Potassium, Serum 4.2 mmol/L 3.5-5.2 Chloride, Serum 102 mmol/L 96-106 Carbon Dioxide, Total 20 mmol/L 18-29 Calcium, Serum 9.2 mg/dL 8.7-10.2 Protein, Total, Serum 6.7 g/dL 6.0-8.5 Albumin, Serum 4.2 g/dL 3.5-5.5 Globulin, Total 2.5 g/dL 1.5-4.5 A/G Ratio 1.7 1.2-2.2 Bilirubin, Total 0.4 mg/dL 0.0-1.2 Alkaline Phosphatase, S 79 IU/L 39-117 AST (SGOT) 61 IU/L 0-40 ALT (SGPT) 104 IU/L 0-44 Lipid Panel - 01/01/17 00:00 Cholesterol, Total 106 mg/dL 100-199 Triglycerides 213 mg/dL 0-149 HDL Cholesterol 33 mg/dL >39 VLDL Cholesterol Jef 43 mg/dL 5-40 LDL Cholesterol Calc 30 mg/dL 0-99 Microalb/Creat Ratio, Randm Ur - 01/01/17 00:00 Creatinine, Urine 152.7 mg/dL Not Estab. Microalbumin, Urine 8.1 ug/mL Not Estab. Microalb/Creat Ratio 5.3 mg/g creat 0.0-30.0 Drug Screen + ETOH - 03/24/18 16:20 Screen Printing Supervisor Pedro Raymond Donor ID By Photo ID Ethanol, Urine <10.00 mg/dL 20.00-80.00 Reason For Test Pre-Employment Temperature In Range YES Deg F 90.00-100.00 Urine Amphetamines NEGATIVE Urine Barbiturates NEGATIVE Urine Benzodiazepines NEGATIVE Urine Cocaine NEGATIVE Urine MDMA NEGATIVE Urine Methadone NEGATIVE Urine Methamphetamines NEGATIVE Urine Opiates NEGATIVE Urine Oxycodone NEGATIVE Urine PCP NEGATIVE Urine THC Metabolite NEGATIVE Encounters ACCT No. Visit Date/Time Discharge Status Pt. Type Provider Facility Loc./Unit Complaint [id number] 10/16/2016 07:35:49 10/16/2016 23:59:59 CLS Outpatient CRUZ JIMÉNEZ [facility] [id number] 03/07/2016 10:17:25 03/07/2016 23:59:59 CLS Outpatient [facility] 10/27/2014 10:18:57 ACT Document Registration [id number] 01/02/2017 11:08:00 Document Registration [id number] 07/29/2016 11:46:43 Document Registration [id number] 04/14/2018 10:00:00 04/14/2018 23:59:59 CLS Outpatient DINO RENO [facility] [place] [id number] 10/27/2014 10:18:56 10/27/2014 23:59:00 DIS Outpatient VERONIKA STEVENS [facility] [id number] 10/18/2014 08:57:22 10/18/2014 23:59:00 DIS Outpatient VERONIKA STEVENS [facility] [id number] 10/03/2014 08:37:02 10/03/2014 23:59:00 DIS Outpatient SAM LINDSAY [facility] [id number] 09/22/2014 08:57:10 09/22/2014 23:59:00 [id number] 03/24/2018 16:13:00 03/24/2018 23:59:00 DIS Outpatient Damián Blackman
--- OUTSIDE RECORDS SUMMARY | 2018-09-15 11:44 | XMS REPORT ---
Author Author DINO RENO [facility] Address [address] [place] [address] Care Team Providers Care Mail Clerks Supervisor Name Role Phone DINO RENO Unavailable PROBLEMS Type Condition ICD9-CM Code WUE32-QI Code Onset Dates Condition Status SNOMED Code Problem Essential hypertension I10 Active 43600592 Problem Gastroesophageal reflux disease with esophagitis K21.0 Active 720206631 Problem Non morbid obesity due to excess calories E66.09 Active 251680324 Problem Obsessive-compulsive disorder, unspecified type F42.9 Active 415513013 Problem Non-insulin treated type 2 diabetes mellitus E11.9 Active [id number] ALLERGIES No Known Allergies SOCIAL HISTORY Never Assessed PLAN OF CARE Activity Details Follow Up 3 Months with Janie velasquez Reason: VITAL SIGNS Height 70 in 2017-01-01 Weight 263.1 lbs 2017-01-01 Temperature 98.3 degrees Fahrenheit 2017-01-01 Heart Rate 84 bpm 2017-01-01 Respiratory Rate 20 2017-01-01 BMI 37.75 kg/m2 2017-01-01 Blood pressure systolic 122 mmHg 2017-01-01 Blood pressure diastolic 78 mmHg 2017-01-01 MEDICATIONS Medication Instructions Dosage Frequency Start Date End Date Duration Status Ezetimibe-Simvastatin 10-20 MG Orally Once a day 1 tablet 24h Active Saxagliptin HCl 5 MG Orally Once a day 1 tablet 24h Active Lisinopril 20 MG Orally Once a day 1 tablet 24h Active Viibryd 40 mg Orally Once a day 1 tablet with food 24h 30 days Active Ranitidine HCl 300 MG Orally Once a day 2 tablet at bedtime 24h Active Omeprazole 20 MG Orally Once a day 1 capsule 24h Active Fluvoxamine Maleate 100 mg Orally Twice a day 1 tablet in the am and 2 tabs at before bed 12h 30 days Active Metformin HCl 1000 MG Orally Twice a day 1 tablet with meals 12h Active RESULTS Name Result Date Reference Range A1C (IN HOUSE) 2017-01-01 A1C IN HOUSE 6.9 4.3 - 5.6 % Previous A1c n/a Lot [id number] Exp date 10/2018 TSH W/ FREE T4 2017-01-01 TSH 1.030 0.450-4.500 T4,Free(Direct) 1.06 0.82-1.77 CBC 2017-01-01 WBC 6.4 3.4-10.8 RBC 4.91 4.14-5.80 Hemoglobin 14.3 12.6-17.7 Hematocrit 42.1 37.5-51.0 MCV 86 79-97 MCH 29.1 26.6-33.0 MCHC 34.0 31.5-35.7 RDW 13.6 12.3-15.4 Platelets 253 150-379 Neutrophils 50 Lymphs 38 Monocytes 10 Eos 2 Basos 0 Neutrophils (Absolute) 3.2 1.4-7.0 Lymphs (Absolute) 2.4 0.7-3.1 Monocytes(Absolute) 0.7 0.1-0.9 Eos (Absolute) 0.1 0.0-0.4 Baso (Absolute) 0.0 0.0-0.2 Immature Granulocytes 0 Immature Grans (Abs) 0.0 0.0-0.1 MICROALBUMIN/CREATININE RATIO, URINE 2017-01-01 Creatinine, Urine 152.7 Not Estab. Microalbumin, Urine 8.1 Not Estab. Microalb/Creat Ratio 5.3 0.0-30.0 LIPID PANEL 2017-01-01 Cholesterol, Total 106 100-199 Triglycerides 213 0-149 HDL Cholesterol 33 >39 VLDL Cholesterol Jef 43 5-40 LDL Cholesterol Calc 30 0-99 CMP 2017-01-01 Glucose, Serum 175 65-99 BUN 11 6-20 Creatinine, Serum 1.07 0.76-1.27 eGFR If NonAfricn Am 89 >59 eGFR If Africn Am 103 >59 BUN/Creatinine Ratio 10 8-19 Sodium, Serum 141 134-144 Potassium, Serum 4.2 3.5-5.2 Chloride, Serum 102 96-106 Carbon Dioxide, Total 20 18-29 Calcium, Serum 9.2 8.7-10.2 Protein, Total, Serum 6.7 6.0-8.5 Albumin, Serum 4.2 3.5-5.5 Globulin, Total 2.5 1.5-4.5 A/G Ratio 1.7 1.2-2.2 Bilirubin, Total 0.4 0.0-1.2 Alkaline Phosphatase, S 79 39-117 AST (SGOT) 61 0-40 ALT (SGPT) 104 0-44 PROCEDURES Procedure Date Ordered Result Body Site GLYCATED HEMOGLOBIN TEST January 01, 2017 ASSAY THYROID STIM HORMONE January 01, 2017 COMPREHEN METABOLIC PANEL January 01, 2017 LIPID PANEL January 01, 2017 VENIPUNCT, ROUTINE* January 01, 2017 COMPLETE CBC W/AUTO DIFF WBC January 01, 2017 ASSAY OF FREE THYROXINE January 01, 2017 MICROALBUMIN, QUANTITATIVE January 01, 2017 ASSAY OF URINE CREATININE January 01, 2017 IMMUNIZATIONS No Known Immunizations MEDICAL (GENERAL) HISTORY Type Description Date Medical History OCD Medical History Type 2 Diabetes Mellitus- Dx 2013 Medical History GERD Hospitalization History Mental health
--- OUTSIDE RECORDS SUMMARY | 2018-09-15 11:44 | XMS REPORT ---
Author Author DINO RENO [facility] Address [address] [place] [address] Care Team Providers Care Product Safety Coordinator Name Role Phone ADRIANCLARISSAPARVIZY Unavailable PROBLEMS Type Condition ICD9-CM Code TBY15-PP Code Onset Dates Condition Status SNOMED Code Problem Essential hypertension I10 Active 01614882 Problem Gastroesophageal reflux disease with esophagitis K21.0 Active 109696115 Problem Non morbid obesity due to excess calories E66.09 Active 958066997 Problem Obsessive-compulsive disorder, unspecified type F42.9 Active 271604529 Problem Non-insulin treated type 2 diabetes mellitus E11.9 Active 71691740 ALLERGIES No Information ENCOUNTERS Encounter Location Date Diagnosis [facility] [id number] [place] [phone] 15 Sep, 2017 [facility] [id number] [place] [phone] 14 Aug, 2017 Arthralgia of left temporomandibular joint M26.622 [facility] [id number] [place] [address] [phone] 28 Jun, 2017 Gastroesophageal reflux disease with esophagitis K21.0 and Essential hypertension I10 [facility] [id number] [place] [address] [phone] 14 May, 2017 Obsessive-compulsive disorder, unspecified type F42.9 [facility] [id number] [place] [phone] 11 Jan, 2017 Elevated liver enzymes R74.8 [facility] [id number] [place] [address] [phone] 16 Dec, 2016 Non-insulin treated type 2 diabetes mellitus E11.9 ; Non morbid obesity due to excess calories E66.09 and Obsessive-compulsive disorder, unspecified type F42.9 IMMUNIZATIONS No Known Immunizations SOCIAL HISTORY Never Assessed REASON FOR VISIT Requests return call PLAN OF CARE VITAL SIGNS MEDICATIONS Unknown Medications RESULTS No Results PROCEDURES No Known procedures INSTRUCTIONS MEDICATIONS ADMINISTERED No Known Medications MEDICAL (GENERAL) HISTORY Type Description Date Medical History OCD Medical History Type 2 Diabetes Mellitus- Dx 2013 Medical History GERD Hospitalization History Mental health
[2018-09-15] MEDS ORDERED: LACTATED RINGERS 1,000 ML IV STA (11:50)
[2018-09-15] MEDS ORDERED: LACTATED RINGERS 1,000 ML IV ONE (11:57)
[2018-09-15] MEDS ORDERED: HURRICAINE EXT TUBE (BENZOCAINE) XX PRN (12:00)
[2018-09-15 12:18] VITALS: BP 119/82
--- NOTE | 2018-09-15 13:11 | Progress Note-Pre Operative ---
Pre-Operative Progress Note H&P Reviewed The H&P was reviewed, patient examined and no changes noted. Time Seen by Provider: 13:08 Date H&P Reviewed: Sep 15, 2018 Time H&P Reviewed: 13:10 Pre-Operative Diagnosis: Gastritis, Change in bowel habit DAWSON WALKER DO Sep 15, 2018 13:11
[2018-09-15] MEDS ORDERED: MIDAZOLAM 2 MG/2 ML (VERSED) VIAL ONE (13:43)
[2018-09-15] MEDS ORDERED: PROPOFOL INJECTION 50 ML IV ONE (13:43)
--- NOTE | 2018-09-15 14:39 | Progress Note-Post Operative ---
Post-Operative Progess Note Surgeon (s)/Powerhouse Tender (s) Surgeon DAWSON WALKER DO Powerhouse Tender: Emily May MSIII Pre-Operative Diagnosis Gastritis, Change in bowel habit Post-Operative Diagnosis Esophagitis Gastritis Colon Polyp Internal Hemorrhoids Procedure & Operative Findings Date of Procedure 09/15/18 Procedure Performed/Findings EGD with bx Colon with snare Colon with cold bx Anesthesia Type IV sedation by Anesthesiologist Estimated Blood Loss Estimated blood loss (mL): scant Specimens/Packing Specimens Removed GE jxn bx Antral and Body of stomach bx Descending colon polyp Sigmoid/rectal polyp DAWSON WALKER DO Sep 15, 2018 14:39
--- NOTE | 2018-09-15 14:41 | Endoscopy Discharge Instruct ---
Endo Procedure/Findings Findings 1.: Gastritis 2.: Polyp 3.: Internal Hemorrhoids Discharge Instructions - Activity: You might feel a little sleepy until tomorrow. This is due to the medicine you received to relax you. Until tomorrow, you should: NOT drive a car, operate machinery or power tools. NOT drink any alcoholic beverages. NOT make any important decisions or sign importortant papers. Do not return to work until tomorrow, unless otherwise instructed. Resume previous activities tomorrow. Diet: Start by taking liquids. If you tolerate liquids, advance to solid food. make an appointment for one week Instructions: 1.: Colonscopy in 5 years, EGD in 1 year Notify Physician - If you experience excessive bleeding, unusual abdominal pain, fever, or chest pain, contact your doctor immediately. Follow-Up: - I have received and understand the above instructions and will call my doctor if I have any further questions. Patient Signature Date Nurse Signature Other (Relationship) DAWSON WALKER DO Sep 15, 2018 14:41
--- NOTE | 2018-09-15 14:42 | Anesthesia-General Post-Op ---
MAC Patient Condition Mental Status/LOC: Same as Preop Cardiovascular: Satisfactory Nausea/Vomiting: Absent Respiratory: Satisfactory Pain: Controlled Complications: Absent Post Op Complications Complications None Follow Up Care/Instructions Patient Instructions None needed. Anesthesiology Discharge Order Discharge Order Patient is doing well, no complaints, stable vital signs, no apparent adverse anesthesia problems. No complications reported per nursing. ANNIKA UGARTE CRNA Sep 15, 2018 14:41
[2018-09-15 15:10] VITALS: BP 119/71
[2018-09-15 15:30] VITALS: BP 126/73
--- NOTE | 2018-09-16 00:32 | OPERATIVE REPORT ---
DATE OF SERVICE: 09/15/2018 PREOPERATIVE DIAGNOSES: 1. Gastritis. 2. Chest pain. 3. Change in bowel habits. POSTOPERATIVE DIAGNOSES: 1. Esophagitis. 2. Gastritis. 3. Colon polyp. 4. Internal hemorrhoids. PROCEDURES: 1. EGD with biopsy. 2. Colonoscopy with snare polypectomy. 3. Colonoscopy with cold biopsy. SURGEON: Pedro Tarango DO. TELEMARKETER: Med student Emily May, third year. ANESTHESIA: IV sedation by CAFETERIA MONITOR. SPECIMEN: 1. One biopsy from the GE junction, one biopsy from the antrum as well as one biopsy from the body of the stomach. 2. Biopsy of a colon polyp from the descending colon and one biopsy from the one polyp from the rectum snared. INDICATION FOR PROCEDURE: The patient is a 38-year-old male who has been having some upper abdominal pain, it sounds like gastritis, chest pain as well as some change in bowel habits and needed an EGD and colonoscopy. FINDINGS: The patient had some changes at the GE junction, looked like at least esophagitis, little bit of redness in the stomach looked like gastritis. Duodenum was fine. No hiatal hernia seen in the colon. It was not a very good prep. Formed stool and liquid stool covered the parsons, but did see a polyp and some small internal hemorrhoids. PROCEDURE NOTE: After informed consent was obtained, the patient was brought to the endoscopy suite, placed in the left lateral decubitus position. He was administered IV sedation by the anesthesiologist who then monitored his vitals the entire time, heart rate, blood pressure and pulse ox. I started with the EGD, pushed the scope down the mouth, down the esophagus and before getting into the stomach, saw creeping up of the Z line right at the GE junction. Picture was taken and a biopsy was done of this at the GE junction then pushed into the stomach, looked like there was some gastritis, pushed into the duodenum. Duodenum looked fine. Pulled back and did a biopsy of the antrum, then did a biopsy of body of the stomach. Retroflexed the scope, did not look like there was any hiatal hernia and then pulled the scope out of the stomach, suctioned it out and then up the esophagus. Esophagus looked normal. Switched scopes, switched gloves, went to the other side. Started the colonoscopy, pushed the scope in the way we noted some. Unfortunately, it was not a very good prep, there was formed stool and liquid stool covering the parsons. Pictures were taken. Able to get all the way to the cecum, took a picture of appendiceal orifice and then able to get into the terminal ileum, took a picture of the terminal ileum, looked fine and then slowly withdrew the scope insufflating to look circumferentially at the parsons looking at the cecum up the ascending colon to the hepatic flexure, then down the transverse colon, the splenic flexure, into the descending colon and then some in the descending colon saw a flat polyp, elected to do a biopsy of this and then continued down and either just outside the rectum or just inside the rectum was a raised polyp, mushroom shaped. Elected to do a snare polypectomy of this. Removed this en bloc and sent this to pathology. Then pulled back into the rectal vault. Retroflexed in rectal vault and saw some internal hemorrhoids very very minimal, took a picture of this and then removed the scope. The patient tolerated the procedure. He was then recovered in the endoscopy suite. Job ID: [id number] DocumentID: [id number] Dictated Date: 09/15/2018 14:35:53 Compensation Associate Date: 09/16/2018 00:32:04 Dictated By: PEDRO TARANGO DO
== END 2018-09-15 15:30 | disposition home or self-care (01) ==
LOC: ENDO 11:39
PROVIDERS: ATTEND Surgery
DX: K21.0 Gastro-esophageal reflux disease with esophagitis (principal); K29.70 Gastritis, unspecified, without bleeding; K63.5 Polyp of colon; K62.1 Rectal polyp; K64.8 Other hemorrhoids; R14.0 Abdominal distension (gaseous); R19.4 Change in bowel habit; I10 Essential (primary) hypertension; E11.9 Type 2 diabetes mellitus without complications; F42.8 Other obsessive-compulsive disorder; F17.210 Nicotine dependence, cigarettes, uncomplicated; E66.9 Obesity, unspecified; Z79.899 Other long term (current) drug therapy; Z79.84 Long term (current) use of oral hypoglycemic drugs; Z68.33 Body mass index [BMI] 33.0-33.9, adult
CPT/HCPCS: 82962

== ENCOUNTER → 2018-10-01 | Outpatient (CLI) | payer OTHER ==
[~2018-10-01] MED LIST changes: +CATHETER FLUSH 10 ML SYR IV PRN
--- NOTE | 2018-10-01 13:08 | Diagnostic Imaging Report ---
Indication: Reflux gastritis Hepatobiliary scan with gallbladder ejection. 4.96 mCi of technetium 99m Choletec was given for the scan. 8 ounces of Ensure was given at 30 minutes for the ejection. There is homogeneous uptake of isotope throughout the liver. Cystic duct and common duct are both patent. The ejection fraction was calculated at 31%. Impression: Cystic and common ducts are patent. Calculated ejection fraction was 31%. Dictated by: Dictated on workstation # [id number]
== END ==
LOC: CARD 09:49
PROVIDERS: ATTEND Surgery
DX: K29.60 Other gastritis without bleeding (principal); R14.2 Eructation
CPT/HCPCS: 78227

== ENCOUNTER 2019-10-16 18:16 | Emergency (ER) | payer SELFPAY ==
[~2019-10-16] VITALS: Ht 175 cm; Wt 100.1 kg
[~2019-10-16 18:16] MED LIST changes: -CATHETER FLUSH 10 ML SYR IV PRN
--- NOTE | 2019-10-16 19:10 | NUR ---
ASSUMED CARE OF THIS PATIENT AT THIS TIME, INTRODUCED SELF TO PATIENT AND FAMILY. PATIENT IS A&O X4, RESSTING IN BED WITH CALL LIGHT IN REACH, DENIES ADDITIONAL NEEDS AT THIS TIME. WILL CONTINUE TO MONITOR.
[2019-10-16] MEDS ORDERED: FAMOTIDINE 20MG/2ML IV (PEPCID) IV STA (19:24)
[2019-10-16] MEDS ORDERED: LACTATED RINGERS 1,000 ML IV STA ×2 (19:24→20:17)
--- NOTE | 2019-10-16 19:29 | ED Abdominal Pain ---
General Chief Complaint: Abdominal/GI Problems Stated Complaint: ABD PAIN/GAS/DIARRHEA AND VOMITING Nursing Triage Note: Pt ambulates to RM 5 with c/o midline upper abd pain, diarrhea, and vomiting x 48 hrs. Pt states he has hx of gallbladder issues. 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 Sepsis Screen: No Definite Risk Source of Information: Patient Exam Limitations: No Limitations History of Present Illness Date Seen by Provider: Oct 16, 2019 Time Seen by Provider: 19:11 Initial Comments Here with report of 2 days of nausea, vomiting and diarrhea. Does have history of insufficient gallbladder. He has been unable to take his stomach acid medicine due to the vomiting. He tried eating yesterday but vomited it all back out. Denies blood in his vomit or stool. Had similar episode last year. Did have colonoscopy at that time which did not show any significant problems. Denies current fever. Does have type 2 diabetes and is concerned about that and he is concerned about dehydration. Timing/Duration: 2-3 Days Severity/Quality: Moderate, Aching, Cramping Location: Epigastric Radiation: RUQ, LUQ, RLQ, LLQ Activities at Onset: None Modifying Factors: Worsens With Eating; Improves With Resting Associated Symptoms: No Back Pain, No Chest Pain, No Fever/Chills; Heartburn, N ausea/Vomiting; No Shortness of Air, No Swelling/Mass in Abdomen, No Weakness Allergies and Home Medications Allergies Coded Allergies: No Known Drug Allergies (Unverified , 09/13/18) Home Medications Cetirizine HCl 10 Mg Tablet, 10 MG PO DAILY, (Reported) Empagliflozin 25 Mg Tablet, 25 MG PO DAILY, (Reported) Fluvoxamine Maleate 100 Mg Tablet, 100 MG PO DAILY, (Reported) Fluvoxamine Maleate 100 Mg Tablet, 200 MG PO HS, (Reported) Lisinopril 20 Mg Tablet, 20 MG PO DAILY, (Reported) Meloxicam 15 Mg Tablet, 15 MG PO DAILY, (Reported) Metformin HCl 1,000 Mg Tablet, 1,000 MG PO BID, (Reported) Omeprazole 20 Mg Tablet.dr, 20 MG PO DAILY, (Reported) Saxagliptin HCl 5 Mg Tablet, 5 MG PO DAILY, (Reported) Vilazodone Hydrochloride 40 Mg Tablet, 40 MG PO DAILY, (Reported) Patient Home Medication List Home Medication List Reviewed: Yes Review of Systems Review of Systems Constitutional: see HPI EENTM: No Symptoms Reported Respiratory: No Symptoms Reported Cardiovascular: No Symptoms Reported Gastrointestinal: See HPI; Denies Abdomen Distended, Denies Difficulty Swallowing Genitourinary: No Symptoms Reported Musculoskeletal: no symptoms reported All Other Systems Reviewed Negative Unless Noted: Yes Past Jnjamys-Asdqke-Ssrpbp Hx Past Med/Social Hx: Reviewed Nursing Past Med/Soc Hx Patient Social History Alcohol Use: Denies Use Recreational Drug Use: No Smoking Status: Current Everyday Smoker Type Used: Cigarettes Recent Foreign Travel: No Contact w/Someone Who Travel: No Recent Infectious Disease Expo: No Recent Hopitalizations: No Physical Abuse: No Sexual Abuse: No Mistreated: No Fear: No Seasonal Allergies Seasonal Allergies: Yes Past Medical History Surgeries: No Respiratory: No Cardiac: Yes Hypertension Neurological: No Reproductive Disorders: No Sexually Transmitted Disease: No HIV/AIDS: No Gastrointestinal: Yes Gastroesophageal Reflux, Chronic Diarrhea Musculoskeletal: No Endocrine: Yes Loss of Vision: Denies Hearing Impairment: Denies Cancer: No Psychosocial: No (OCD) Integumentary: No Blood Disorders: No Adverse Reaction/Blood Tranf: No (N/A) Family Medical History Reviewed Nursing Family Hx Physical Exam Vital Signs Vital Signs - First Documented 10/16/19 18:34 Temp 36.7 Pulse 98 Resp 17 B/P (MAP) 150/99 (116) Pulse Ox 96 O2 Delivery Room Air Capillary Refill : Less Than 3 Seconds Height/Weight/BMI Height: 5'10.00" Weight: 230lbs. 0.0oz. 104.661084vv; 32.00 BMI Method: General Appearance: WD/WN, no apparent distress HEENT: PERRL/EOMI, pharynx normal Neck: full range of motion, supple Respiratory: lungs clear, normal breath sounds Cardiovascular: no murmur, tachycardia Gastrointestinal: non tender, soft; No guarding, No rebound Extremities: non-tender, normal inspection Back: normal inspection, no CVA tenderness, no vertebral tenderness Neurologic/Psychiatric: alert, oriented x 3 Skin: normal color, warm/dry Progress/Results/Core Measures Results/Orders Lab Results Laboratory Tests Test 10/16/19 18:44 Range/Units White Blood Count 6.1 4.3-11.0 10^3/uL Red Blood Count 6.30 H 4.35-5.85 10^6/uL Hemoglobin 17.4 13.3-17.7 G/DL Hematocrit 52 40-54 % Mean Corpuscular Volume 82 80-99 FL Mean Corpuscular Hemoglobin 28 25-34 PG Mean Corpuscular Hemoglobin Concent 34 32-36 G/DL Red Cell Distribution Width 14.7 H 10.0-14.5 % Platelet Count 324 130-400 10^3/uL Mean Platelet Volume 10.5 H 7.4-10.4 FL Neutrophils (%) (Auto) 53 42-75 % Lymphocytes (%) (Auto) 25 12-44 % Monocytes (%) (Auto) 20 H 0-12 % Eosinophils (%) (Auto) 2 0-10 % Basophils (%) (Auto) 0 0-10 % Neutrophils # (Auto) 3.2 1.8-7.8 X 10^3 Lymphocytes # (Auto) 1.5 1.0-4.0 X 10^3 Monocytes # (Auto) 1.2 H 0.0-1.0 X 10^3 Eosinophils # (Auto) 0.1 0.0-0.3 10^3/uL Basophils # (Auto) 0.0 0.0-0.1 10^3/uL Neutrophils % (Manual) 36 % Lymphocytes % (Manual) 32 % Monocytes % (Manual) 16 % Eosinophils % (Manual) 4 % Basophils % (Manual) 0 % Band Neutrophils 8 % Reactive Lymphocytes 4 % Blood Morphology Comment NORMAL Sodium Level 138 135-145 MMOL/L Potassium Level 3.7 3.6-5.0 MMOL/L Chloride Level 106 98-107 MMOL/L Carbon Dioxide Level 16 L 21-32 MMOL/L Anion Gap 16 H 5-14 MMOL/L Blood Urea Nitrogen 15 7-18 MG/DL Creatinine 1.17 0.60-1.30 MG/DL Estimat Glomerular Filtration Rate > 60 BUN/Creatinine Ratio 13 Glucose Level 130 H 70-105 MG/DL Calcium Level 9.9 8.5-10.1 MG/DL Corrected Calcium 8.5-10.1 MG/DL Magnesium Level 1.8 1.6-2.4 MG/DL Total Bilirubin 1.2 H 0.1-1.0 MG/DL Aspartate Amino Transf (AST/SGOT) 75 H 5-34 U/L Alanine Aminotransferase (ALT/SGPT) 145 H 0-55 U/L Alkaline Phosphatase 101 40-136 U/L C-Reactive Protein High Sensitivity 1.36 H 0.00-0.50 MG/DL Total Protein 8.3 H 6.4-8.2 GM/DL Albumin 5.1 H 3.2-4.5 GM/DL My Orders Orders - COLEMAN MAYERS MD Cbc With Automated Diff (10/16/19 19:24) Comprehensive Metabolic Panel (10/16/19 19:24) Hs C Reactive Protein (10/16/19 19:24) Magnesium (10/16/19 19:24) Ondansetron Injection (Zofran Injectio (10/16/19 19:30) Lactated Ringers (Lr 1000 Ml Iv Solution (10/16/19 19:24) Famotidine Injection (Pepcid Injection) (10/16/19 19:24) Ed Iv/Invasive Line Start (10/16/19 19:24) Pantoprazole Injection (Protonix Injecti (10/16/19 19:30) Manual Differential (10/16/19 18:44) Ua Culture If Indicated (10/16/19 19:33) Lactated Ringers (Lr 1000 Ml Iv Solution (10/16/19 20:17) Medications Given in ED Current Medications Medications Dose Ordered Sig/Mary Jo Route Start Time Stop Time Status Last Admin Dose Admin Ondansetron HCl 4 mg ONCE ONCE IVP 10/16/19 19:30 10/16/19 19:31 DC 10/16/19 19:40 4 MG Pantoprazole 40 mg ONCE ONCE IV 10/16/19 19:30 10/16/19 19:31 DC 10/16/19 19:40 40 MG Vital Signs/I&O 10/16/19 18:34 Temp 36.7 Pulse 98 Resp 17 B/P (MAP) 150/99 (116) Pulse Ox 96 O2 Delivery Room Air Blood Pressure Mean: 116 Progress Progress Note : Progress Note Seen and evaluated. IV, labs, UA, LR 1 L bolus, Zofran 4 mg IV, Pepcid 20 mg IV and Protonix 40 mg IV ordered. Monitor patient. 2021: Overall feeling better. Patient is quite dehydrated by labs. We will go ahead and repeat LR 1 L bolus and initiate by mouth challenge with ice chips now. Monitor patient. 2123: Overall feeling better. Tolerated ice chips well. Discharged home with return precautions. Patient verbalize understanding instructions and agreement with plan. Departure Impression Primary Impression: Nausea and vomiting Qualified Codes: R11.2 - Nausea with vomiting, unspecified Additional Impressions: Diarrhea Qualified Codes: R19.7 - Diarrhea, unspecified Dehydration Disposition: 01 HOME, SELF-CARE Condition: Improved Departure-Patient Inst. Decision time for Depature: 21:23 Referrals: DAWSON TARANGO HOLLY R MD (PCP/Family) Primary Care Physician Patient Instructions: Acute Abdomen (Belly Pain), Adult (DC), Dehydration, Adult (DC), Nausea and Vomiting, Adult (DC), Diarrhea and Traveler's Diarrhea, Adult (DC) Add. Discharge Instructions: All discharge instructions reviewed with patient and/or family. Voiced understanding. Clear liquid diet for the next 24 hours and then advance as tolerated. Follow-up with your Dr. in a few days for recheck. Return for worse pain, fever, vomiting, weakness, breathing problems or other concerns as needed. You should follow-up with Dr. Tarango to discuss your concerns related to the gallbladder. Copy Copies To 1: DAWSON TARANGO TIMOTHY D MD Oct 16, 2019 19:28
[2019-10-16 19:30] LABS: BASOPHILS % (AUTO) 0 % (0-10); EOSINOPHILS # (AUTO) 0.1 10^3/uL (0.0-0.3); EOSINOPHILS % (AUTO) 2 % (0-10); HEMATOCRIT 52 % (40-54); HEMOGLOBIN 17.4 G/DL (13.3-17.7); LYMPHOCYTES # (AUTO) 1.5 X 10^3 (1.0-4.0); LYMPHOCYTES % (AUTO) 25 % (12-44); MEAN CORPUSCULAR HEMOGLOBIN 28 PG (25-34); MEAN CORPUSCULAR HGB CONC 34 G/DL (32-36); MEAN CORPUSCULAR VOLUME 82 FL (80-99); MEAN PLATELET VOLUME 10.5 FL (7.4-10.4); MONOCYTES # (AUTO) 1.2 X 10^3 (0.0-1.0); MONOCYTES % (AUTO) 20 % (0-12); NEUTROPHILS # (AUTO) 3.2 X 10^3 (1.8-7.8); NEUTROPHILS % (AUTO) 53 % (42-75); PLATELET COUNT 324 10^3/uL (130-400); RED CELL DISTRIBUTION WIDTH 14.7 % (10.0-14.5); WHITE BLOOD COUNT 6.1 10^3/uL (4.3-11.0)
[2019-10-16] MEDS ORDERED: ONDANSETRON 4 MG/2 ML (SDV) Z0FRAN IVP ONE (19:30)
[2019-10-16] MEDS ORDERED: PANTOPRAZOLE 40 MG (PROTONIX) VIAL IV ONE (19:30)
[2019-10-16 19:42] LABS: ALANINE AMINOTRANSFERASE 145 U/L (0-55); ALBUMIN 5.1 GM/DL (3.2-4.5); ALKALINE PHOSPHATASE 101 U/L (40-136); BILIRUBIN,TOTAL 1.2 MG/DL (0.1-1.0); BUN/CREATININE RATIO 13; CALCIUM 9.9 MG/DL (8.5-10.1); CARBON DIOXIDE 16 MMOL/L (21-32); CHLORIDE 106 MMOL/L (98-107); CREATININE SERUM 1.17 MG/DL (0.60-1.30); GFR ESTIMATED > 60; GLUCOSE 130 MG/DL (70-105); MAGNESIUM 1.8 MG/DL (1.6-2.4); POTASSIUM 3.7 MMOL/L (3.6-5.0); SODIUM 138 MMOL/L (135-145); TOTAL PROTEIN 8.3 GM/DL (6.4-8.2)
[2019-10-16 19:52] LABS: BAND NEUTROPHILS 8 %; BASOPHILS % (MANUAL) 0 %; EOSINOPHILS % (MANUAL) 4 %; LYMPHOCYTES % (MANUAL) 32 %; MONOCYTES % (MANUAL) 16 %; NEUTROPHILS % (MANUAL) 36 %; REACTIVE LYMPHOCYTES 4 %
[2019-10-16 19:53] LABS: RBC MORPH NORMAL
[2019-10-16 21:45] VITALS: BP 145/83
== END 2019-10-16 21:49 | disposition home or self-care (01) ==
LOC: EDUNIT# 18:16 → ER 18:17
DX: R11.2 Nausea with vomiting, unspecified (principal); R19.7 Diarrhea, unspecified; E86.0 Dehydration; I10 Essential (primary) hypertension; K21.9 Gastro-esophageal reflux disease without esophagitis; F42.9 Obsessive-compulsive disorder, unspecified; F17.210 Nicotine dependence, cigarettes, uncomplicated; Z79.84 Long term (current) use of oral hypoglycemic drugs
CPT/HCPCS: 36415; 80053; 83735; 85007; 85027; 86141; 96361; 96374; 96375